=== PATIENT | female | born 1950 | race Caucasian/White ===

== ENCOUNTER 2016-10-07 16:47 | Observation (INO) | payer MEDICARE, MEDICAID ==
[~2016-10-07] VITALS: Ht 167.6 cm; Wt 60.8 kg
[~2016-10-07 16:47] MED LIST: AMOXICILLIN500 MG PO; CITALOPRAM20 MG PO; CLEOCIN150 MG PO; IBUPROFEN600 MG PO; KLONOPIN0.5 MG PO; LAMOTRIGINE150 MG PO; LEVOTHYROXIN100 MC1 PO; METOPROL TAR50 MG PO; NAPROXEN375 MG OR; RISPERDAL 4MG TA4 MG OR; RISPERDAL M1 MG PO; ZOLPIDEM10 MG PO
[2016-10-07 17:53] LABS: HEMATOCRIT 36.7 % (37.0-47.0); HEMOGLOBIN 12.5 g/dl (12.0-16.0); IMMATURE GRANULOCYTES 0.4 % (0.0-1.0); MEAN CELL VOLUME 94.6 fL CALC (80.0-100.0); MEAN CORPUSCULAR HGB 32.2 pG CALC (26.0-32.0); MEAN CORPUSCULAR HGB CONC 34.1 g/L CALC (32.0-36.0); NEUT# 8.15 thou/uL (2.00-7.15); RED BLOOD COUNT 3.88 mill/uL (4.20-5.60); RED CELL DISTRI WIDTH 13.4 % (11.5-15.5)
[2016-10-07 17:56] LABS: URINE BILIRUBIN - DIPSTICK NEGATIVE (NEGATIVE); URINE BLOOD DIPSTICK LARGE (NEGATIVE); URINE CLARITY SLIGHT CLOUDY; URINE COLOR YELLOW; URINE GLUCOSE - DIPSTICK NEGATIVE (NEGATIVE); URINE KETONE NEGATIVE (NEGATIVE); URINE LEUK ESTERASE NEGATIVE (NEGATIVE); URINE NITRITE - DIPSTICK NEGATIVE (Negative); URINE PH 5.5 (4.5-8.0); URINE PROTEIN - DIPSTICK NEGATIVE (NEG-TRACE); URINE UROBILINOGEN - DIPSTICK 0.2 E.U./dL (0.2)
[2016-10-07 18:00] LABS: ALBUMIN 4.6 g/dL (3.2-5.0); ALKALINE PHOSPHATASE 76 u/l (38-126); AMYLASE 85 u/l (30-110); ANION GAP 13 (6-22 (CALC)); BILIRUBIN, TOTAL 0.7 mg/dL (0.0-1.4); BUN 14 mg/dL (8-23); BUN/CREATININE RATIO 17 (12-20 (CALC)); CALCIUM 9.2 mg/dL (8.4-10.2); CARBON DIOXIDE 28 mmol/l (22-30); CHLORIDE 101 mmol/l (95-108); CREATININE 0.8 mg/dL (0.5-1.0); GFR > 60 ML/MIN (>=60 (CALC)); GFR FOR AFR.AMER. > 60 ML/MIN (>=60 (CALC)); GLUCOSE 99 mg/dL (82-115); LIPASE 89 u/l (23-300); POTASSIUM 3.9 mmol/l (3.5-5.1); SGOT/AST 40 u/l (9-36); SGPT/ALT 32 u/l (11-66); SODIUM 138 mmol/l (137-146); TOTAL PROTEIN 7.5 g/dL (6.3-8.2)
[2016-10-07 18:03] LABS: URINE BACTERIA FEW hpf; URINE SQUAMOUS EPITHELIAL CELL FEW EPI/hpf (0-FEW)
[2016-10-07] MEDS ORDERED: ATIVAN1 MG PO (18:48)
[2016-10-07 20:37] VITALS: BP 105/40
[2016-10-08] VITALS (7 sets, daily range): BP systolic 94–113; BP diastolic 33–51
[2016-10-08 06:42] LABS: HEMATOCRIT 32.4 % (37.0-47.0); HEMOGLOBIN 11.1 g/dl (12.0-16.0); IMMATURE GRANULOCYTES 0.2 % (0.0-1.0); MEAN CORPUSCULAR HGB 32.6 pG CALC (26.0-32.0); MEAN CORPUSCULAR HGB CONC 34.3 g/L CALC (32.0-36.0); NEUT# 5.75 thou/uL (2.00-7.15); RED BLOOD COUNT 3.41 mill/uL (4.20-5.60); RED CELL DISTRI WIDTH 13.3 % (11.5-15.5)
[2016-10-08 07:03] LABS: ANION GAP 8 (6-22 (CALC)); BUN 14 mg/dL (8-23); BUN/CREATININE RATIO 17 (12-20 (CALC)); CALCIUM 8.3 mg/dL (8.4-10.2); CARBON DIOXIDE 25 mmol/l (22-30); CHLORIDE 108 mmol/l (95-108); CREATININE 0.8 mg/dL (0.5-1.0); GFR > 60 ML/MIN (>=60 (CALC)); GFR FOR AFR.AMER. > 60 ML/MIN (>=60 (CALC)); GLUCOSE 103 mg/dL (82-115); POTASSIUM 4.1 mmol/l (3.5-5.1); SODIUM 137 mmol/l (137-146)
[2016-10-08] MEDS ORDERED: CIPROFLOXACN500 MG PO (14:24)
[2016-10-08] MEDS ORDERED: FLORASTOR250 M1 PO (14:24)
[2016-10-08] MEDS ORDERED: METRONIDAZOL500 MG PO (14:24)
[2016-10-08] MEDS ORDERED: ULTRAM50 M1 PO (14:24)
== END 2016-10-08 14:57 | disposition home or self-care (01) ==
LOC: ENPENDDIS → ED 16:47 → ED-I 18:45 → ED 19:27 → MS2 19:28
PROVIDERS: Emergency Medicine; ADMIT Internal Medicine; ATTEND Internal Medicine
PROC: 0DTJ4ZZ Resection of Appendix, Percutaneous Endoscopic Approach (ICD-10-PCS; principal; 2016-10-08)
DX: K35.80 Unspecified acute appendicitis (principal); N83.202 Unspecified ovarian cyst, left side; I10 Essential (primary) hypertension; F31.9 Bipolar disorder, unspecified; E03.9 Hypothyroidism, unspecified; F17.210 Nicotine dependence, cigarettes, uncomplicated
CPT/HCPCS: J2710; Q9967

== ENCOUNTER 2017-05-28 11:14 | Emergency (ER) | payer MEDICARE, MEDICAID ==
[~2017-05-28] VITALS: Ht 167.6 cm; Wt 59.0 kg
[~2017-05-28 11:14] MED LIST changes: +ATIVAN1 MG PO; +CIPROFLOXACN500 MG PO; +FLORASTOR250 M1 PO; +METRONIDAZOL500 MG PO; +ULTRAM50 M1 PO
[2017-05-28] MEDS ORDERED: RISPERIDONE0.5 MG PO (12:14)
[2017-05-28] MEDS ORDERED: TRAZODONE50 MG PO (12:18)
[2017-05-28 12:40] LABS: HEMATOCRIT 42.7 % (37.0-47.0); HEMOGLOBIN 14.8 g/dl (12.0-16.0); IMMATURE GRANULOCYTES 0.4 % (0.0-1.0); MEAN CELL VOLUME 94.3 fL CALC (80.0-100.0); MEAN CORPUSCULAR HGB 32.7 pG CALC (26.0-32.0); MEAN CORPUSCULAR HGB CONC 34.7 g/L CALC (32.0-36.0); NEUT# 10.9 thou/uL (2.00-7.15); RED BLOOD COUNT 4.53 mill/uL (4.20-5.60); RED CELL DISTRI WIDTH 12.7 % (11.5-15.5)
[2017-05-28 12:41] LABS: URINE BLOOD DIPSTICK LARGE (NEGATIVE); URINE COLOR YELLOW; URINE GLUCOSE - DIPSTICK NEGATIVE (NEGATIVE); URINE KETONE TRACE mg/dL (NEGATIVE); URINE LEUK ESTERASE TRACE (NEGATIVE); URINE NITRITE - DIPSTICK NEGATIVE (Negative); URINE PH 5.5 (4.5-8.0); URINE PROTEIN - DIPSTICK NEGATIVE (NEG-TRACE); URINE SPECIFIC GRAVITY 1.025; URINE UROBILINOGEN - DIPSTICK 0.2 E.U./dL (0.2)
[2017-05-28 12:42] LABS: URINE BILIRUBIN - DIPSTICK SMALL (NEGATIVE); URINE CLARITY TURBID
[2017-05-28 12:56] LABS: ALBUMIN 4.6 g/dL (3.2-5.0); ALKALINE PHOSPHATASE 90 u/l (38-126); ANION GAP 16 (6-22 (CALC)); BILIRUBIN, TOTAL 0.6 mg/dL (0.0-1.4); BUN 14 mg/dL (8-23); BUN/CREATININE RATIO 17 (12-20 (CALC)); CARBON DIOXIDE 26 mmol/l (22-30); CHLORIDE 103 mmol/l (95-108); CREATININE 0.8 mg/dL (0.5-1.0); GFR > 60 ML/MIN (>=60 (CALC)); GFR FOR AFR.AMER. > 60 ML/MIN (>=60 (CALC)); INTERNATIONAL NORMALIZED RATIO 0.9 RATIO (0.7-1.3); LIPASE 101 u/l (23-300); POTASSIUM 3.8 mmol/l (3.5-5.1); PROTHROMBIN TIME 10.4 SECONDS (9.0-12.5); SGOT/AST 22 u/l (9-36); SGPT/ALT 30 u/l (11-66); SODIUM 141 mmol/l (137-146); TOTAL PROTEIN 7.2 g/dL (6.3-8.2)
[2017-05-28 13:00] LABS: URINE RBC 25-50 RBC/hpf (0-5); URINE SQUAMOUS EPITHELIAL CELL FEW EPI/hpf (0-FEW)
[2017-05-28] MEDS ORDERED: CIPRO XR500 MG PO (14:58)
[2017-05-28] MEDS ORDERED: ZOFRAN4 M1 PO (14:58)
[2017-05-28] MEDS ORDERED: METRONIDAZOL500 MG PO (14:58)
[2017-05-28 15:47] VITALS: BP 136/84
== END 2017-05-28 16:05 | disposition left against medical advice (07) ==
LOC: ED 11:14
PROVIDERS: Family Medicine
DX: K52.9 Noninfective gastroenteritis and colitis, unspecified (principal); R10.84 Generalized abdominal pain; R11.2 Nausea with vomiting, unspecified; K92.1 Melena
CPT/HCPCS: Q9967; S0164

== ENCOUNTER 2019-06-17 16:30 | Emergency (ER) | payer MEDICARE, MEDICAID ==
[~2019-06-17 16:30] MED LIST changes: +CIPRO XR500 MG PO; +RISPERIDONE0.5 MG PO; +TRAZODONE50 MG PO; +ZOFRAN4 M1 PO
[2019-06-17 17:05] VITALS: BP 111/56
== END 2019-06-17 17:09 | disposition home or self-care (01) ==
LOC: ED 16:30
DX: Z20.9 Contact with and (suspected) exposure to unspecified communicable disease (principal); F17.200 Nicotine dependence, unspecified, uncomplicated

== ENCOUNTER 2023-12-29 10:25 | Emergency (ER) | payer MEDICARE, MEDICAID ==
[~2023-12-29] VITALS: Ht 167.6 cm; Wt 77.0 kg
[2023-12-29] VITALS (7 sets, daily range): BP systolic 84–124; BP diastolic 40–68
[2023-12-29] MEDS ORDERED: KETOROLAC TROMETHAMINE 30 MG/ML SDV IM ONE (11:05)
[2023-12-29] MEDS ORDERED: MORPHINE SULFATE 4 MG/ML VIAL IV ONE (12:15)
[2023-12-29 12:32] LABS: BASO% 0.2 % (0-3); EOS% 0.3 % (0-8); HEMATOCRIT 40.7 % (37.0-47.0); HEMOGLOBIN 13.5 g/dl (12.0-16.0); IMMATURE GRANULOCYTES 0.3 % (0.0-5.0); LYMPH% 16.8 % (15-41); MEAN CELL VOLUME 97.6 fL CALC (80.0-100.0); MEAN CORPUSCULAR HGB 32.4 pG CALC (26.0-32.0); MEAN CORPUSCULAR HGB CONC 33.2 g/dL CAL (32.0-36.0); MONO% 7.6 % (2-13); NEUT# 8.72 thou/uL (2.00-7.15); NEUT% 74.8 % (42-76); RED BLOOD COUNT 4.17 mill/uL (4.20-5.60); RED CELL DISTRI WIDTH 13.7 % (11.5-15.5)
[2023-12-29 12:44] LABS: CREATININE 0.9 mg/dL (0.5-1.0); POTASSIUM 4.7 mmol/l (3.5-5.1)
[2023-12-29] MEDS ORDERED: RISPERDAL4 MG PO (12:59)
[2023-12-29] MEDS ORDERED: LEVOTHYROXIN50 MCG PO (13:00)
[2023-12-29 13:01] LABS: PROTHROMBIN TIME 9.9 SECONDS (9.0-12.5)
[2023-12-29] MEDS ORDERED: MIRTAZAPINE15 MG PO (13:02)
[2023-12-29] MEDS ORDERED: MEPERIDINE HCL 50 MG/ML IV ONE (13:05)
== END 2023-12-29 13:30 | disposition short-term general hospital (02) ==
LOC: ED 10:25
PROVIDERS: Family Medicine
DX: S72.002A Fracture of unspecified part of neck of left femur, initial encounter for closed fracture (principal); F31.9 Bipolar disorder, unspecified; F41.9 Anxiety disorder, unspecified; F17.200 Nicotine dependence, unspecified, uncomplicated; W19.XXXA Unspecified fall, initial encounter